=== PATIENT | male | born 2000 | race Caucasian/White ===

== ENCOUNTER 2024-12-30 19:45 | Inpatient (IN) | payer MEDICAID, OTHER ==
[~2024-12-30] VITALS: Ht 157.5 cm; Wt 58.6 kg
[~2024-12-30 19:45] MED LIST: NOCURR
[2024-12-30 20:17] LABS: PLATELET COUNT (AUTO) 206 K/uL (150-450); RED BLOOD CELL COUNT(AUTO) 5.47 MIL/uL (4.50-5.90); RED CELL DISTRIBUTION WIDTH 14.7 % (11.5-14.5); WHITE BLOOD COUNT (AUTO) 8.0 K/uL (4.5-11.0)
[2024-12-30 20:20] LABS: COVID AG,FIA SOURCE NASAL SWAB
[2024-12-30 20:25] LABS: CALCIUM, TOTAL 9.6 mg/dL (8.8-10.5); CREATININE 0.80 mg/dL (0.60-1.30); GLOMERULAR FILTR. RATE CALC > 60 mL/min (>60); GLUCOSE,RANDOM 100 mg/dL (70-110); SODIUM SERUM 136 mmol/L (136-145); UREA NITROGEN, BLOOD 10 mg/dL (7-18)
[2024-12-30 20:27] LABS: APPEARANCE,URINE CLEAR (CLEAR); GLUCOSE, URINE (UA) NEGATIVE (NEGATIVE); LEUKOCYTE ESTERASE ,URINE NEGATIVE (NEGATIVE); NITRATE,URINE NEGATIVE (NEGATIVE); OCCULT BLOOD,URINE NEGATIVE (NEGATIVE); PH,URINE DRUG SCREEN 7.5 (5.0-8.0); SPECIFIC GRAVITIY, URINE 1.007 (1.003-1.030)
[2024-12-30 20:36] LABS: AMPHET/METH SCREEN,URINE NEGATIVE (NEGATIVE); BARBITURATE SCREEN, URINE NEGATIVE (NEGATIVE); CANNABINOID SCREEN,URINE NEGATIVE (NEGATIVE); COCAINE SCREEN,URINE NEGATIVE (NEGATIVE); METHADONE SCREEN, URINE NEGATIVE (NEGATIVE)
[2024-12-30 20:38] LABS: ALCOHOL, URINE DRUG SCREEN NEGATIVE (NEGATIVE)
[2024-12-30 20:47] LABS: SARS-COV2 (COVID) ANTIGEN,FIA Positive (Negative)
[2024-12-31 02:14] VITALS: BP 118/72; PULSE 78; RESP 18; TEMP 97.9; O2SAT 100
[2024-12-31 07:36] VITALS: BP 122/83; PULSE 76; RESP 18; TEMP 97.4; O2SAT 100
[2024-12-31] MEDS: LORazepam 2 MG/ML VIAL IM ONE ×3 (09:37→21:25)
[2024-12-31 16:01] VITALS: BP 115/82; PULSE 93; RESP 18; TEMP 99.1; O2SAT 95
[2024-12-31 19:22] VITALS: BP 109/71; PULSE 94; RESP 20; TEMP 97.9; O2SAT 99
[2024-12-31] MEDS ORDERED: BISACODYL 10 MG RECTAL RECTAL SUPPOSITORY PR PRN (20:15)
[2024-12-31] MEDS ORDERED: ONDANSETRON HCL 4 MG/2 ML VIAL IVP PRN (20:15)
[2024-12-31] MEDS ORDERED: MAGNESIUM HYDROXIDE SUSPENSION 30 ML UDCUP PO PRN (20:15)
[2024-12-31] MEDS ORDERED: IPRATROPIUM BROMIDE 0.5 MG/2.5 ML NEB SOLUTION NEB PRN (20:15)
[2024-12-31] MEDS ORDERED: ALBUTEROL SULFATE 2.5 MG/0.5 ML NEB SOLUTION NEB PRN (20:15)
[2024-12-31] MEDS ORDERED: ZOLPIDEM TARTRATE 5 MG TABLET PO PRN (20:15)
[2024-12-31] MEDS: DIAZEPAM 5 MG/ML 2 ML SYRINGE IM ONE (21:21)
[2025-01-01] MEDS: DIAZEPAM 5 MG/ML 2 ML SYRINGE IM ONE ×2 (01:19→06:08)
[2025-01-01] MEDS: HEPARIN SODIUM,PORCINE 5,000 UNITS/ML VIAL SQ SCH (01:20)
[2025-01-01 07:35] LABS: PLATELET COUNT (AUTO) 194 K/uL (150-450); RED BLOOD CELL COUNT(AUTO) 5.08 MIL/uL (4.50-5.90); RED CELL DISTRIBUTION WIDTH 14.6 % (11.5-14.5); WHITE BLOOD COUNT (AUTO) 12.0 K/uL (4.5-11.0)
[2025-01-01 08:10] LABS: ASPARTATE AMINOTRANSFERASE 93 U/L (15-37); CALCIUM, TOTAL 8.9 mg/dL (8.8-10.5); CREATININE 0.95 mg/dL (0.60-1.30); GLOMERULAR FILTR. RATE CALC > 60 mL/min (>60); GLUCOSE,RANDOM 111 mg/dL (70-110); SODIUM SERUM 136 mmol/L (136-145); TOTAL PROTEIN, SERUM 7.4 g/dL (6.4-8.2); UREA NITROGEN, BLOOD 11 mg/dL (7-18)
[2025-01-01] MEDS: PANTOPRAZOLE SODIUM 40 MG DR TABLET PO SCH (09:03)
[2025-01-01 10:24] VITALS: BP 129/78; PULSE 115; RESP 18; TEMP 98.1; O2SAT 98
[2025-01-01] MEDS ORDERED: OLANZapine 5 MG RAPDIS TABLET PO PRN (11:30)
[2025-01-01] MEDS: DIVALPROEX SODIUM 250 MG ER TABLET PO ONE (12:05)
[2025-01-01] MEDS ORDERED: POTASSIUM CHL 10 MEQ/WATER 50 ML IV PRN (14:15)
[2025-01-01] MEDS: POTASSIUM CHLORIDE 20 MEQ ER TABLET PO PRN (15:18)
[2025-01-01] MEDS ORDERED: LORazepam 2 MG/ML VIAL ONE (16:01)
[2025-01-01] MEDS: LORazepam 2 MG/ML VIAL IM ONE ×2 (16:10→20:29)
[2025-01-01] MEDS: OLANZapine 5 MG RAPDIS TABLET PO SCH (17:05)
[2025-01-01 20:00] VITALS: BP 94/75; PULSE 134; RESP 32; TEMP 98.6; O2SAT 99
[2025-01-01] MEDS: DIVALPROEX SODIUM 250 MG ER TABLET PO SCH (20:21)
[2025-01-02 04:24] VITALS: BP 121/73; PULSE 110; RESP 17; TEMP 99.3; O2SAT 98
[2025-01-02] MEDS: ACETAMINOPHEN 325 MG TABLET PO PRN (04:34)
[2025-01-02] MEDS: LORazepam 2 MG/ML VIAL IM ONE (10:28)
[2025-01-02 10:43] LABS: COVID AG,FIA SOURCE NASAL SWAB
[2025-01-02 11:06] LABS: SARS-COV2 (COVID) ANTIGEN,FIA Negative (Negative)
[2025-01-02] MEDS: OLANZapine 5 MG RAPDIS TABLET PO SCH (13:18)
[2025-01-02] MEDS ORDERED: OLAN5TAB94 PO ×2 (14:01→14:05)
[2025-01-02] MEDS ORDERED: DIVA-85 PO (14:01)
[2025-01-02] MEDS ORDERED: PANT-31 PO (14:02)
[2025-01-02] MEDS ORDERED: ACET-2247 PO (14:03)
[2025-01-02] MEDS ORDERED: MAGN-169 PO (14:04)
[2025-01-02] MEDS ORDERED: LORA2TAB18 PO (14:04)
[2025-01-02] MEDS ORDERED: BISA-151 PO (14:06)
[2025-01-03] MEDS ORDERED: OLAN5TAB94 PO (12:23)
[2025-01-03] MEDS ORDERED: NALT50TA33 PO (12:23)
[2025-01-03] MEDS ORDERED: MELA5TAB40 PO (12:23)
[2025-01-03] MEDS ORDERED: DIVA-85 PO (12:23)
== END 2025-01-02 15:00 | DRG 137 ==
LOC: EMS 19:45 → EDH 23:10 → 4E 12-31 02:09
PROVIDERS: ADMIT Hospitalist; ATTEND Hospitalist
DX: U07.1 COVID-19 (principal); E87.6 Hypokalemia; F20.9 Schizophrenia, unspecified; F17.200 Nicotine dependence, unspecified, uncomplicated; F14.10 Cocaine abuse, uncomplicated; F12.10 Cannabis abuse, uncomplicated; Z60.8 Other problems related to social environment; Z91.148 Patient's other noncompliance with medication regimen for other reason; Z56.0 Unemployment, unspecified
CPT/HCPCS: 80048; 80053; 80307; 81003; 85025; 99285; G0378; G0480; J1200; J1630; J1644; J2060; J3230

== ENCOUNTER 2025-01-02 12:01 | Inpatient (IN) | payer MEDICAID ==
[2025-01-02] MEDS ORDERED: MAG HYDROX/ALUMINUM HYD/SIMETH ES 30 ML SUSPENSION UDCUP PO PRN (13:30)
[2025-01-02] MEDS ORDERED: GuaiFENesin/D-METHORPHAN [SUGAR-FREE] 200-20MG/10 ML SYRUP UDCUP PO PRN (13:30)
[2025-01-02] MEDS ORDERED: MAGNESIUM HYDROXIDE SUSPENSION 30 ML UDCUP PO PRN (13:30)
[2025-01-02] MEDS ORDERED: PROMETHAZINE HCL 25 MG TABLET PO PRN (13:30)
[2025-01-02] MEDS ORDERED: OLANZapine 5 MG RAPDIS TABLET PO PRN (13:30)
[2025-01-02] MEDS ORDERED: TUBERCULIN, PURIFIED PROTEIN DERIVATIVE 5 TU/0.1 ML SYRINGE ID ONE (13:30)
[2025-01-02] MEDS ORDERED: LOPERAMIDE HCL 2 MG CAPSULE PO PRN (13:30)
[2025-01-02] MEDS ORDERED: ACETAMINOPHEN 325 MG TABLET PO PRN (13:30)
[2025-01-02] MEDS ORDERED: OLAN5TAB94 PO ×2 (14:01→14:05)
[2025-01-02] MEDS ORDERED: DIVA-85 PO (14:01)
[2025-01-02] MEDS ORDERED: PANT-31 PO (14:02)
[2025-01-02] MEDS ORDERED: ACET-2247 PO (14:03)
[2025-01-02] MEDS ORDERED: MAGN-169 PO (14:04)
[2025-01-02] MEDS ORDERED: LORA2TAB18 PO (14:04)
[2025-01-02] MEDS ORDERED: BISA-151 PO (14:06)
[2025-01-02] MEDS: DIVALPROEX SODIUM 250 MG ER TABLET PO SCH (17:00)
[2025-01-02] MEDS: THIAMINE 100 MG TABLET PO SCH (17:00)
[2025-01-02] MEDS: OLANZapine 5 MG RAPDIS TABLET PO SCH (17:00)
[2025-01-02 18:16] VITALS: BP 128/89; PULSE 97; RESP 16; TEMP 98; O2SAT 99
[2025-01-02] MEDS: MELATONIN 5 MG TABLET PO SCH (20:31)
[2025-01-02 21:06] VITALS: RESP 18
[2025-01-02] MEDS: ZOLPIDEM TARTRATE 10 MG TABLET PO PRN (22:29)
[2025-01-03] MEDS: FOLIC ACID 1 MG TABLET PO SCH (08:12)
[2025-01-03] MEDS: MULTIVITAMINS WITH MINERALS, THERAPEUTIC TABLET PO SCH (08:12)
[2025-01-03] MEDS: NALTREXONE HCL 50 MG TABLET PO SCH (08:12)
[2025-01-03 08:34] VITALS: BP 116/65; PULSE 97; RESP 17; TEMP 97.7; O2SAT 99
[2025-01-03] MEDS ORDERED: OLAN5TAB94 PO (12:23)
[2025-01-03] MEDS ORDERED: MELA5TAB40 PO (12:23)
[2025-01-03] MEDS ORDERED: DIVA-85 PO (12:23)
[2025-01-03] MEDS ORDERED: NALT50TA33 PO (12:23)
== END 2025-01-03 14:45 | disposition home or self-care (01) | DRG 750 ==
LOC: B3A 15:37
PROVIDERS: ADMIT Psychiatry & Neurology Psychiatry; ATTEND Psychiatry & Neurology Psychiatry
PROC: GZHZZZZ Group Psychotherapy (ICD-10-PCS; principal; 2025-01-02)
PROC: GZ58ZZZ Individual Psychotherapy, Cognitive-Behavioral (ICD-10-PCS; 2025-01-02)
PROC: GZ56ZZZ Individual Psychotherapy, Supportive (ICD-10-PCS; 2025-01-03)
DX: F25.9 Schizoaffective disorder, unspecified (principal); F12.10 Cannabis abuse, uncomplicated; F17.200 Nicotine dependence, unspecified, uncomplicated; Z20.822 Contact with and (suspected) exposure to COVID-19; F14.10 Cocaine abuse, uncomplicated; Z55.9 Problems related to education and literacy, unspecified; Z56.0 Unemployment, unspecified; Z59.9 Problem related to housing and economic circumstances, unspecified; Z63.9 Problem related to primary support group, unspecified; Z65.3 Problems related to other legal circumstances; Z91.199 Patient's noncompliance with other medical treatment and regimen due to unspecified reason
CPT/HCPCS: Z7610